=== PATIENT | female | born 1955 | race Caucasian/White ===

== ENCOUNTER 2017-03-04 08:45 | Emergency (ER) | payer BC ==
--- NOTE | 2017-03-04 10:31 | UC ---
Skin Complaint HPI - HPI Summary HPI Summary: The patient comes in today for: 1. Tick bite: Onset: First noticed yesterday, but she was visiting her sister who has a problem with deer ticks in her yard. She thinks that she picked up the tick two days ago. Palliative/provocative: Tender to touch. Quality: Burning Region: Right side. Severity: 4/10 Time: Constant. Associated symptoms: Fever: None. Injury: None Discharge: None. * - History of Current Complaint Chief Complaint: [facility] Time Seen by Provider: 03/04/17 10:01 Stated Complaint: TICK BITE Hx Obtained From: Patient ?: No - Allergy/Home Medications Allergies/Adverse Reactions: Allergies Allergy/AdvReac Type Severity Reaction Status Date / Time Penicillin V Allergy Intermediate Severe Verified 03/28/16 10:28 [From Penicillin VK Hives and Potassium] Swelling Home Medications: Home Medications Liraglutide [Victoza] 18 mg 03/04/17 [History] Mirabegron (NF) [Myrbetriq (NF)] 50 mg PO DAILY 03/04/17 [History Confirmed 04/15] metFORMIN* [Glucophage 500 MG TAB *] 500 mg PO BID 03/04/17 [History Confirmed 03/04/17] Review of Systems Constitutional: Negative Skin: Rash Eyes: Negative ENT: Negative Respiratory: Negative Cardiovascular: Negative Gastrointestinal: Negative Genitourinary: Negative All Other Systems Reviewed And Are Negative: Yes PMH/Surg Hx/FS Hx/Imm Hx Previously Healthy: No - Sleep apnea Endocrine History Of: Reports: Diabetes, Thyroid Disease - hypo, Hypothyroidism , Dyslipidemia Denies: Hyperthyroidism Cardiovascular History Of: Reports: Hypertension Denies: Cardiac Disorders, Pacemaker/ICD, Myocardial Infarction, Congestive Heart Failure, Atrial Fibrillation, Deep Vein Thrombosis, Bleeding Disorders Respiratory History Of: Denies: COPD, Asthma, Bronchitis, Pneumonia, Pulmonary Embolism GI/ History Of: Reports: Gastroesophageal Reflux - HIstory of esophageal strictures. Denies: Ulcer, Gastrointestinal Bleed, Gall Bladder Disease, Kidney Stones, Diverticulitis, Renal Disease, Urosepsis Neurological History Of: Denies: TIA, CVA, Dementia, Seizures, Migraine Psychological History Of: Reports: Anxiety, Bipolar Disorder Denies: Depression, Schizophrenia, Post Traumatic Stress Disorder Cancer History Of: Denies: Lung Cancer, Colorectal Cancer, Breast Cancer, Prostate Cancer, Cervical Cancer Other History Of: Anticoagulant Therapy Negative For: HIV, Hepatitis B, Hepatitis C - Surgical History Surgical History: Yes Surgery Procedure, Year, and Place: Gallbladder & Appendix 1979; Tonsillectomy, Sinus and Nose 1992; Laminectomy (Epidural Abcess) 2004; Carpal Tunnel Bilateral 2004; Bilateral Cataracts 2010; Knee Surgery Torn Meniscus-left 2011 - Family History Known Family History: Positive: Hypertension Negative: Cardiac Disease - Social History Occupation: Employed Full-time Alcohol Use: None Substance Use Type: None Smoking Status (MU): Never Smoked Tobacco Physical Exam Triage Information Reviewed: Yes Appearance: Well-Appearing, No Pain Distress, Well-Nourished Vital Signs: Initial Vital Signs Temp 97.9 F 03/04/17 09:11 Pulse 75 03/04/17 09:11 Resp 18 03/04/17 09:11 BP 150/68 03/04/17 09:11 Pulse Ox 97 03/04/17 09:11 Vital Signs Reviewed: Yes Eyes: Positive: Conjunctiva Clear. Negative: Discharge ENT: Positive: Hearing grossly normal. Negative: Pharyngeal erythema, Nasal congestion, Nasal drainage, TM bulging, TM dull, TM red, Tonsillar swelling, Tonsillar exudate Dental: Negative: Gross Decay/Caries @, Dental Fracture @ Neck: Positive: Supple, Nontender, No Lymphadenopathy. Negative: Nuchal Rigidity Respiratory: Positive: Chest non-tender, Lungs clear, No respiratory distress, No accessory muscle use. Negative: Crackles, Wheezing Cardiovascular: Positive: RRR, No Murmur Abdomen Description: Positive: Nontender, No Organomegaly, Soft. Negative: Distended, Guarding Musculoskeletal: Positive: Strength Intact, ROM Intact, No Edema Neurological: Positive: Alert, Muscle Tone Normal Psychological: Positive: Age Appropriate Behavior, Consolable Skin: Positive: rashes - She has two erythematous areas along her lower right side. There is some skin edema and one of the lesions has a cyanotic, but not necrotic area. There was no discharge and minimal tenderness. A deer tick was removed from the more mild lesion.. Negative: breakdown Course/Dx - Course Course Of Treatment: Patient told of her diagnotic and treatment options. She agrees to go with doxycycline treatment. - Differential Diagnoses - Skin Complaint Differential Diagnoses: Cellulitis, Tinea - Diagnoses Provider Diagnoses: Tick bite. Cellulitis right lower torso. Discharge - Discharge Plan Condition: Stable Disposition: HOME Patient Education Materials: Tick Bite (ED), Cellulitis (ED) Referrals: Brittany Andrea MD [Primary Care Provider] - 1 Week (Please follow up with your primary care provider early next week to see how well you are doing and for any blood work needed for follow-up. )
[2017-03-04 10:50] VITALS: BP 135/67
== END 2017-03-04 21:35 | disposition home or self-care (01) ==
LOC: UCEAST 08:45
DX: S30.861A Insect bite (nonvenomous) of abdominal wall, initial encounter (principal); W57.XXXA Bitten or stung by nonvenomous insect and other nonvenomous arthropods, initial encounter; Y93.9 Activity, unspecified; Y92.9 Unspecified place or not applicable; E11.9 Type 2 diabetes mellitus without complications; Z79.84 Long term (current) use of oral hypoglycemic drugs; E03.9 Hypothyroidism, unspecified; E78.5 Hyperlipidemia, unspecified; I10 Essential (primary) hypertension; K21.9 Gastro-esophageal reflux disease without esophagitis; Z90.49 Acquired absence of other specified parts of digestive tract; Z98.42 Cataract extraction status, left eye; Z98.41 Cataract extraction status, right eye; Z88.0 Allergy status to penicillin
CPT/HCPCS: 99212; G0463